=== PATIENT | female | born 1970 | race Caucasian/White ===

== ENCOUNTER → 2017-05-25 | Outpatient (CLI) | payer OTHER ==
--- NOTE | 2017-05-25 20:09 | Diagnostic Imaging Report ---
PROCEDURE: US Thyroid. TECHNIQUE: Multiple real-time grayscale images were obtained of the thyroid in various projections. INDICATION: Thyroid nodules. FINDINGS: The right thyroid lobe is 6.7 x 2.4 x 2.7 cm. The left lobe is 6.4 x 2.1 x 1.9 cm. There are multiple nodules seen up to 1.2 cm in the right thyroid lobe and up to 1.1 cm in the left thyroid lobe. There is a colloid cyst in the upper aspect of the left thyroid lobe measuring 0.5 cm as well. IMPRESSION: Nonspecific thyroid nodules up to 1.2 cm in size, and enlargement of the thyroid gland suggestive of multinodular goiter. Dictated by: Dictated on workstation # [id number]
== END ==
LOC: RAD 13:19
PROVIDERS: ATTEND Family Medicine
DX: E04.2 Nontoxic multinodular goiter (principal)
CPT/HCPCS: 76536

== ENCOUNTER → 2017-05-25 | Outpatient (CLI) | payer OTHER | LOC: RAD 13:25 → EDUNIT# 13:45 | PROVIDERS: ATTEND Nurse Practitioner Family | DX: Z12.31 Encounter for screening mammogram for malignant neoplasm of breast (principal) | CPT/HCPCS: 77067 ==

== ENCOUNTER → 2020-02-21 | Outpatient (CLI) | payer BC, OTHER ==
--- NOTE | 2020-02-21 14:43 | Diagnostic Imaging Report ---
INDICATION: Constipation. Time of exam 2:16 PM Surgical clips are noted in the gallbladder fossa. Bowel gas pattern is nonobstructed. There is moderate stool throughout the colon. No pathologic calcifications are seen. IMPRESSION: Moderate stool. The study is otherwise unremarkable. Dictated by: Dictated on workstation # [id number]
== END ==
LOC: RAD 13:41
PROVIDERS: ATTEND Nurse Practitioner Family
DX: K59.00 Constipation, unspecified (principal)
CPT/HCPCS: 74019

== ENCOUNTER 2020-03-20 08:37 | Outpatient (RCR) | payer BC ==
[~2020-03-20] VITALS: Ht 167 cm; Wt 75.0 kg
[~2020-03-20 08:37] MED LIST: BUPR300T43 PO; DULA1.5P2 SQ; PANT40TA2 PO; SITA1TAB2 PO; TRIA10.8 NS
== END 2020-03-20 15:29 | disposition home or self-care (01) ==
LOC: PREOP 08:37
PROVIDERS: ATTEND Surgery
DX: Z01.812 Encounter for preprocedural laboratory examination (principal); K45.8 Other specified abdominal hernia without obstruction or gangrene; Z20.828 Contact with and (suspected) exposure to other viral communicable diseases
CPT/HCPCS: 87635

== ENCOUNTER 2020-03-25 09:09 | Day surgery (SDC) | payer BC ==
[~2020-03-25] VITALS: Ht 167.7 cm; Wt 75.0 kg
[2020-03-25] MEDS ORDERED: LACTATED RINGERS 1,000 ML IV ONE (09:13)
[2020-03-25] MEDS ORDERED: HURRICAINE EXT TUBE (BENZOCAINE) XX PRN (09:15)
[2020-03-25] MEDS ORDERED: LACTATED RINGERS 1,000 ML IV STA (09:15)
[2020-03-25] MEDS ORDERED: MIDAZOLAM 2 MG/2 ML (VERSED) VIAL ONE (09:30)
[2020-03-25] MEDS ORDERED: proPOfol 200 MG/20 ML (DIPRIVAN) VIAL IV ONE (09:30)
--- NOTE | 2020-03-25 09:31 | Progress Note-Pre Operative ---
Pre-Operative Progress Note H&P Reviewed The H&P was reviewed, patient examined and no changes noted. Time Seen by Provider: : Date H&P Reviewed: Mar 25, 2020 Time H&P Reviewed: : Pre-Operative Diagnosis: Dysphagia, Gastritis, Change in bowel habits HAYDEN MACK DO Mar 25, 2020 09:31
[2020-03-25 09:45] VITALS: BP 141/72
--- NOTE | 2020-03-25 10:05 | NUR ---
COLONOSCOPY PROCEDURE ABORTED DUE TO POOR PREP, PER DOCTOR PT WILL BE SCHEDULED TO COMPLETE.
--- NOTE | 2020-03-25 10:13 | Progress Note-Post Operative ---
Post-Operative Progess Note Surgeon (s)/Switchboard Manager (s) Surgeon HAYDEN MACK DO Switchboard Manager: none Pre-Operative Diagnosis Dysphagia, Gastritis, Change in bowel habits Post-Operative Diagnosis Gastritis Hiatal Hernia Poor prep ?? polyp Procedure & Operative Findings Date of Procedure 03/25/20 Procedure Performed/Findings EGD with bx colon Anesthesia Type IV sedation by anesthesia Estimated Blood Loss Estimated blood loss (mL): scant Specimens/Packing Specimens Removed Antral bx body of stomach bx GE jxn bx HAYDEN MACK DO Mar 25, 2020 10:13
--- NOTE | 2020-03-25 10:14 | Endoscopy Discharge Instruct ---
Endo Procedure/Findings Findings 1.: Gastritis 2.: Hiatal Hernia 3.: Other Findings (Poor prep....??polyp) Discharge Instructions - Activity: You might feel a little sleepy until tomorrow. This is due to the medicine you received to relax you. Until tomorrow, you should: NOT drive a car, operate machinery or power tools. NOT drink any alcoholic beverages. NOT make any important decisions or sign importortant papers. Do not return to work until tomorrow, unless otherwise instructed. Resume previous activities tomorrow. Diet: Start by taking liquids. If you tolerate liquids, advance to solid food. make an appointment for one week 1.: Colonoscopy in 1 year, EGD in 3 years Notify Physician - If you experience excessive bleeding, unusual abdominal pain, fever, or chest pain, contact your doctor immediately. HAYDEN MACK DO Mar 25, 2020 10:14
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
[2020-03-25 10:20] VITALS: BP 128/67
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
--- OUTSIDE RECORDS SUMMARY | 2020-03-25 10:25 | XMS REPORT | CCD ---
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 Dates Constitutional No fatigue 04/27/2019 Constitutional No fever 04/27/2019 Constitutional No chills 04/27/2019 Gastrointestinal No abdominal pain 04/27/2019 Gastrointestinal constipation 04/27/2019 Gastrointestinal No diarrhea 04/27/2019 Endocrine diabetes mellitus type 2 04/27/2019 Genitourinary/Nephrology pelvic pain 04/27/2019 Dermatologic No rash Dermatologic No sores Respiratory No cough Genitourinary/Nephrology No dysuria 04/27/2019 Genitourinary/Nephrology No flank pain 04/27/2019 Genitourinary/Nephrology No hematuria 04/27/2019 Genitourinary/Nephrology No urinary urgenc y 04/27/2019 Genitourinary/Nephrology No urinary frequency 04/27/2019 Genitourinary/Nephrology No urinary incontinence 04/27/2019 Genitourinary/Nephrology No urinary retention/hesitancy 04/27/2019 Cardiovascular No arrhythmia 04/27/2019 Cardiovascular No chest pain/pressure 04/27/2019 Cardiovascular No edema 04/27/2019 Cardiovascular No exercise intolerance 04/27/2019 Cardiovascular No orthopnea 04/27/2019 Cardiovascular No palpitations 04/27/2019 Constitutional No fussiness 12/15/2018 Constitutional No night sweats 12/15/2018 Constitutional No anorexia 12/15/2018 Constitutional No chills 12/15/2018 Constitutional No diaphoresis 12/15/2018 Constitutional No recent illness 12/15/2018 Constitutional No fatigue 12/15/2018 Constitutional No fever 12/15/2018 Constitutional No insomnia 12/15/2018 Constitutional No malaise 12/15/2018 Constitutional No weight gain/obesity 12/15/2018 Constitutional No weight loss 12/15/2018 Eyes No eye pain 019 Eyes No visual disturbance 12/15/2018 Eyes No vision change Ears/Nose/Throat/Neck No dizziness 12/15/2018 Ears/Nose/Throat/Neck No headache 12/15/2018 Cardiovascular No chest pain/pressure 12/15/2018 Cardiovascular No cardiac murmur 12/15/2018 Cardiovascular No dyspnea 12/15/2018 Cardiovascular No fatigue 12/15/2018 Cardiovascular No palpitations 12/15/2018 Respiratory No cough 07/2019 Respiratory No dyspnea 0 12/15/2018 Gastrointestinal abdominal pain 12/15/2018 Gastrointestinal constipation 12/15/2018 Gastrointestinal No diarrhea 12/15/2018 Gastrointestinal dyspepsia 12/15/2018 Gastrointestinal No dysphagia 12/15/2018 Gastrointestinal gas and bloating 12/15/2018 Gastrointestinal gastroesophageal reflux 12/15/2018 Gastrointestinal No hematemesis 12/15/2018 Gastrointestinal No hematochezia 12/15/2018 Gastrointestinal increased abdominal girth 12/15/2018 Gastrointestinal No jaundice 12/15/2018 Gastrointestinal No melena 12/15/2018 Gastrointestinal nausea 12/15/2018 Gastrointestinal No odynophagia 12/15/2018 Gastrointestinal No proctalgia fugax 12/15/2018 Gastrointestinal No pruritus ani 12/15/2018 Gastrointestinal No vomiting 12/15/2018 Gastrointestinal No hemorrhoids 12/15/2018 Genitourinary/Nephrology No dysuria 12/15/2018 Musculoskeletal No arthralgia(s) 12/15/2018 Musculoskeletal No low back pain 12/15/2018 Dermatologic No rash 07/2019 Dermatologic No sores Neurologic No alteration of consciousness 12/15/2018 Neurologic No headache 0 12/15/2018 Psychiatric anxiety 12/05 Psychiatric No depression 12/15/2018 Endocrine diabetes mellitus type 2 12/15/2018 Hematologic/Lymphatic No abnormal ec chymoses 12/15/2018 Hematologic/Lymphatic No abnormal bl eeding and bruising 12/15/2018 Endocrine diabetes mellitus type 2 08/22/2018 Psychiatric anxiety 08/06 Psychiatric stress 08/22 Gastrointestinal nausea 08/22/2018 Gastrointestinal No vomiting 08/22/2018 Gastrointestinal constipation 08/22/2018 Gastrointestinal gas and bloating 08/22/2018 Constitutional insomnia 05/26/2018 Cardiovascular No arrhythmia 05/26/2018 Cardiovascular No chest pain/pressure 05/26/2018 Cardiovascular No edema 05/26/2018 Cardiovascular No exercise intolerance 05/26/2018 Cardiovascular No orthopnea 05/26/2018 Cardiovascular No palpitations 05/26/2018 Endocrine diabetes mellitus type 2 05/26/2018 Respiratory No asthma Respiratory No cough Respiratory No dyspnea 0 05/26/2018 Respiratory No pleuritic pain 05/26/2018 Respiratory No productive sputum 05/26/2018 Respiratory No wheezing 05/26/2018 Constitutional No night sweats 01/18/2018 Constitutional No fatigue 01/18/2018 Constitutional No fever 01/18/2018 Constitutional insomnia 01/18/2018 Constitutional No weight loss 01/18/2018 Ears/Nose/Throat/Neck No hearing loss 01/18/2018 Ears/Nose/Throat/Neck No nasal discharge 01/18/2018 Ears/Nose/Throat/Neck No sinus congestion 01/18/2018 Ears/Nose/Throat/Neck No sore throat 01/18/2018 Cardiovascular No arrhythmia 01/18/2018 Cardiovascular No chest pain/pressure 01/18/2018 Cardiovascular No edema 01/18/2018 Cardiovascular No exercise intolerance 01/18/2018 Cardiovascular No orthopnea 01/18/2018 Cardiovascular No palpitations 01/18/2018 Respiratory No asthma Respiratory No cough Respiratory No dyspnea 0 01/18/2018 Respiratory No pleuritic pain 01/18/2018 Respiratory No productive sputum 01/18/2018 Respiratory No wheezing 01/18/2018 Gastrointestinal No hemorrhoids 01/18/2018 Gastrointestinal No hepatitis 01/18/2018 Gastrointestinal No abdominal pain 01/18/2018 Gastrointestinal No constipation 01/18/2018 Gastrointestinal No diarrhea 01/18/2018 Gastrointestinal No gastroesophageal reflu x 01/18/2018 Gastrointestinal No melena 01/18/2018 Gastrointestinal No nausea 01/18/2018 Gastrointestinal No vomiting 01/18/2018 Genitourinary/Nephrology No dysuria 01/18/2018 Genitourinary/Nephrology No nocturia 01/18/2018 Genitourinary/Nephrology No urinary incontinence 01/18/2018 Musculoskeletal No muscle weakness 01/18/2018 Musculoskeletal No myalgias 01/18/2018 Musculoskeletal No stiffness 01/18/2018 Musculoskeletal No swelling 01/18/2018 Dermatologic No rash Dermatologic No scar Neurologic No dizziness 01/18/2018 Neurologic No headache 0 01/18/2018 Neurologic No neck pain 01/18/2018 Neurologic No syncope Psychiatric No anxiety 0 01/18/2018 Psychiatric No depression 01/18/2018 Endocrine No goiter 01/04 Endocrine No hyperglycemia 01/18/2018 Endocrine No hypoglycemia 01/18/2018 Endocrine diabetes mellitus type 2 01/18/2018 Endocrine hyperlipidemia 01/18/2018 Musculoskeletal neck pain 08/12/2017 Neurologic paresthesia 1 10/13/2016 Neurologic neck pain 03/2017 Endocrine diabetes mellitus type 2 08/12/2017 Cardiovascular No arrhythmia 05/25/2017 Cardiovascular No chest pain/pressure 05/25/2017 Cardiovascular No edema 05/25/2017 Cardiovascular No exercise intolerance 05/25/2017 Cardiovascular No orthopnea 05/25/2017 Cardiovascular No palpitations 05/25/2017 Cardiovascular hypertension 05/25/2017 Constitutional fatigue 0 04/30/2017 Constitutional insomnia 04/30/2017 Constitutional weight gain/obesity 04/30/2017 Ears/Nose/Throat/Neck headache 04/30/2017 Gastrointestinal constipation 04/30/2017 Gastrointestinal No diarrhea 04/30/2017 Cardiovascular edema Cardiovascular No hypertension 04/30/2017 Cardiovascular palpitations 04/30/2017 Cardiovascular No chest pain/pressure 04/30/2017 Psychiatric anxiety 04/07 Psychiatric depression 0 04/30/2017 Psychiatric No suicidality 04/30/2017 Endocrine hypothyroid Endocrine goiter 017 Genitourinary/Nephrology No Pap smea r abnormality 04/30/2017 Physical Exam Exam Name System Name It em Name Status Result Effective Dates Notes Full Exam - General Constitutional general appearance Overall: well nourished 04/27/2019 None Full Exam - General Constitutional general appearance Overall: in no acute distress 04/27/2019 None Full Exam - General Cardiovascular auscultation of heart Overall: regular rate 04/27/2019 None Full Exam - General Cardiovascular auscultation of heart Overall: no murmurs 04/27/2019 None Full Exam - General Respiratory respiratory effort/rhythm Overall: no retractions 04/27/2019 None Full Exam - General Respiratory respiratory effort/rhythm Overall: normal rate 04/27/2019 None Full Exam - General Respiratory auscultation Overall: breath sounds clear bilater ally 04/27/2019 None Full Exam - General Cardiovascular extremities Overall: no clubbing 04/27/2019 None Full Exam - General Cardiovascular extremities Overall: No edema 04/27/2019 None Full Exam - General Cardiovascular extremities Overall: No cyanosis 04/27/2019 None Full Exam - General Musculoskeletal gait and station Overall: normal gait 04/27/2019 None Full Exam - General Musculoskeletal gait and station Overall: normal station 04/27/2019 None Full Exam - General Neurologic mental status Overall: alert 9 None Full Exam - General Neurologic mental status Overall: oriented 04/27/2019 None Full Exam - General Psychiatric mood and affect Overall: normal mood and affect 04/27/2019 None Full Exam - General Constitutional general appearance Overall: well nourished 12/15/2018 None Full Exam - General Constitutional general appearance Overall: well developed 12/15/2018 None Full Exam - General Constitutional general appearance Overall: in no acute distress 12/15/2018 None Full Exam - General Eyes conjunctiva/eyelids Overall: conjunctiva clear 12/15/2018 None Full Exam - General Eyes conjunctiva/eyelids Overall: cornea clear 12/15/2018 None Full Exam - General Eyes conjunctiva/eyelids Overall: eyelids normal 12/15/2018 None Full Exam - General Eyes pupils and irises Overall: pupils equal, round, reacti ve to light and accomodation 12/15/2018 None Full Exam - General Ears/Nose/Throat otoscopic exam Overall: external auditory canals clear 12/15/2018 None Full Exam - General Ears/Nose/Throat otoscopic exam Overall: tympanic membranes clear 12/15/2018 None Full Exam - General Ears/Nose/Throat oral cavity/pharynx/larynx Overall: oral mucosa clear 12/15/2018 None Full Exam - General Neck inspection of neck Overall: normal size 12/15/2018 None Full Exam - General Neck inspection of neck Overall: normal appearance 12/15/2018 None Full Exam - General Respiratory auscultation Overall: breath sounds clear bilater ally 12/15/2018 None Full Exam - General Respiratory respiratory effort/rhythm Overall: no retractions 12/15/2018 None Full Exam - General Respiratory respiratory effort/rhythm Overall: normal rate 12/15/2018 None Full Exam - General Cardiovascular auscultation of heart Overall: regular rate 12/15/2018 None Full Exam - General Cardiovascular auscultation of heart Overall: normal heart sounds 12/15/2018 None Full Exam - General Cardiovascular extremities Overall: No edema 12/15/2018 None Full Exam - General Abdomen abdominal exam Overall: soft 12/15/2018 None Full Exam - General Abdomen abdominal exam Overall: no masses 12/15/2018 None Full Exam - General Abdomen abdominal exam Bowel sounds: hypoactive 12/15/2018 None Full Exam - General Abdomen abdominal exam Contour: rounded 019 None Full Exam - General Abdomen abdominal exam Skin: a normal exam 12/15/2018 None Full Exam - General Abdomen abdominal exam Left upper quadrant: dull pain 12/15/2018 None Full Exam - General Abdomen abdominal exam Left lower quadrant: dull pain 12/15/2018 None Full Exam - General Abdomen abdominal exam Right upper quadrant: dull pain 12/15/2018 None Full Exam - General Abdomen abdominal exam Right lower quadrant: dull pain 12/15/2018 None Full Exam - General Abdomen abdominal exam Epigastric: dull pain 12/15/2018 None Full Exam - General Lymphatic neck nodes Overall: anterior cervical chain helen ign 12/15/2018 None Full Exam - General Lymphatic neck nodes Overall: posterior cervical chain be nign 12/15/2018 None Full Exam - General Musculoskeletal head and neck Overall: head atraumatic 12/15/2018 None Full Exam - General Musculoskeletal head and neck Overall: cervical spine benign 12/15/2018 None Full Exam - General Musculoskeletal gait and station Overall: normal gait 12/15/2018 None Full Exam - General Musculoskeletal gait and station Overall: normal station 12/15/2018 None Full Exam - General Integument inspection of skin Overall: no rash, lesions 12/15/2018 None Full Exam - General Neurologic mental status Overall: alert 9 None Full Exam - General Neurologic mental status Overall: oriented 12/15/2018 None Full Exam - General Neurologic motor Overall: normal bulk, tone 12/15/2018 None Full Exam - General Psychiatric orientation/consciousness Overall: oriented to person, place and time 12/15/2018 None Full Exam - General Psychiatric mood and affect Overall: normal mood and affect 12/15/2018 None Full Exam - General Psychiatric judgment/insight Overall: judgment and insight intact 12/15/2018 None Full Exam - General Constitutional general appearance Overall: well nourished 08/22/2018 None Full Exam - General Constitutional general appearance Overall: well developed 08/22/2018 None Full Exam - General Constitutional general appearance Overall: in no acute distress 08/22/2018 None Full Exam - General Neurologic mental status Overall: alert 8 None Full Exam - General Neurologic mental status Overall: oriented 08/22/2018 None Full Exam - General Psychiatric mood and affect Overall: normal mood and affect 08/22/2018 None Full Exam - General Abdomen abdominal exam Overall: no masses 08/22/2018 None Full Exam - General Abdomen abdominal exam Overall: normal bowel sounds 08/22/2018 None Full Exam - General Abdomen abdominal exam Overall: soft 08/22/2018 None Full Exam - General Abdomen abdominal exam Epigastric: tender to palpation 08/22/2018 None Full Exam - General Respiratory auscultation Overall: breath sounds clear bilater ally 08/22/2018 None Full Exam - General Cardiovascular auscultation of heart Overall: regular rate 08/22/2018 None Full Exam - General Cardiovascular auscultation of heart Overall: normal heart sounds 08/22/2018 None Full Exam - General Cardiovascular auscultation of heart S4 (atrial gallop): present 08/22/2018 None Full Exam - General Constitutional general appearance Overall: well nourished 05/26/2018 None Full Exam - General Constitutional general appearance Overall: well developed 05/26/2018 None Full Exam - General Constitutional general appearance Overall: in no acute distress 05/26/2018 None Full Exam - General Neurologic mental status Overall: alert 8 None Full Exam - General Neurologic mental status Overall: oriented 05/26/2018 None Full Exam - General Psychiatric mood and affect Overall: normal mood and affect 05/26/2018 None Full Exam - General Respiratory auscultation Overall: breath sounds clear bilater ally 05/26/2018 None Full Exam - General Cardiovascular auscultation of heart Overall: regular rate 05/26/2018 None Full Exam - General Cardiovascular auscultation of heart Overall: normal heart sounds 05/26/2018 None Full Exam - General Cardiovascular extremities Overall: no clubbing 05/26/2018 None Full Exam - General Cardiovascular extremities Overall: No edema 05/26/2018 None Full Exam - General Cardiovascular extremities Overall: No cyanosis 05/26/2018 None Full Exam - General Constitutional general appearance Overall: well nourished 01/18/2018 None Full Exam - General Constitutional general appearance Overall: well developed 01/18/2018 None Full Exam - General Constitutional general appearance Overall: in no acute distress 01/18/2018 None Full Exam - General Neurologic mental status Overall: alert 8 None Full Exam - General Neurologic mental status Overall: oriented 01/18/2018 None Full Exam - General Psychiatric mood and affect Mood: tearful 01/18/2018 None Full Exam - General Respiratory auscultation Overall: breath sounds clear bilater ally 01/18/2018 None Full Exam - General Cardiovascular auscultation of heart Overall: regular rate 01/18/2018 None Full Exam - General Cardiovascular auscultation of heart Overall: normal heart sounds 01/18/2018 None Full Exam - General Cardiovascular auscultation of heart Overall: no murmurs 01/18/2018 None Full Exam - General Cardiovascular extremities Overall: no clubbing 01/18/2018 None Full Exam - General Cardiovascular extremities Overall: No edema 01/18/2018 None Full Exam - General Cardiovascular extremities Overall: No cyanosis 01/18/2018 None Full Exam - General Neck inspection of neck Overall: normal size 01/18/2018 None Full Exam - General Neck inspection of neck Overall: no masses 01/18/2018 None Full Exam - General Ears/Nose/Throat otoscopic exam Overall: external auditory canals clear 01/18/2018 None Full Exam - General Ears/Nose/Throat otoscopic exam Overall: tympanic membranes clear 01/18/2018 None Full Exam - General Ears/Nose/Throat internal nose Overall: bilateral nasal cavities clear 01/18/2018 None Full Exam - General Ears/Nose/Throat oral cavity/pharynx/larynx Overall: oral mucosa clear 01/18/2018 None Full Exam - General Abdomen abdominal exam Overall: no masses 01/18/2018 None Full Exam - General Abdomen abdominal exam Overall: normal bowel sounds 01/18/2018 None Full Exam - General Abdomen abdominal exam Overall: soft 01/18/2018 None Full Exam - General Abdomen abdominal exam Epigastric: tender to palpation 01/18/2018 None Full Exam - General Musculoskeletal gait and station Overall: normal gait 01/18/2018 None Full Exam - General Musculoskeletal gait and station Overall: normal station 01/18/2018 None Full Exam - General Constitutional general appearance Overall: well nourished 08/12/2017 None Full Exam - General Constitutional general appearance Overall: well developed 08/12/2017 None Full Exam - General Constitutional general appearance Overall: in no acute distress 08/12/2017 None Full Exam - General Neurologic mental status Overall: alert 7 None Full Exam - General Neurologic mental status Overall: oriented 08/12/2017 None Full Exam - General Psychiatric mood and affect Overall: normal mood and affect 08/12/2017 None Full Exam - General Respiratory auscultation Overall: breath sounds clear bilater ally 08/12/2017 None Full Exam - General Cardiovascular auscultation of heart Overall: regular rate 08/12/2017 None Full Exam - General Cardiovascular auscultation of heart Overall: normal heart sounds 08/12/2017 None Full Exam - General Musculoskeletal spine, ribs and pelvis Spine: tender @ cervical spine 08/12/2017 None Full Exam - General Chest/Breast breast/chest inspection Breast symmetry: asymmetric 08/12/2017 left breast implant sitting lower in chest than right Full Exam - General Constitutional general appearance Overall: well nourished 05/25/2017 None Full Exam - General Constitutional general appearance Overall: well developed 05/25/2017 None Full Exam - General Constitutional general appearance Overall: in no acute distress 05/25/2017 None Full Exam - General Neurologic mental status Overall: alert 7 None Full Exam - General Neurologic mental status Overall: oriented 05/25/2017 None Full Exam - General Psychiatric mood and affect Overall: normal mood and affect 05/25/2017 None Full Exam - General Respiratory auscultation Overall: breath sounds clear bilater ally 05/25/2017 None Full Exam - General Cardiovascular auscultation of heart Overall: regular rate 05/25/2017 None Full Exam - General Cardiovascular auscultation of heart Overall: normal heart sounds 05/25/2017 None Full Exam - General Cardiovascular auscultation of heart S3 (ventricular gallop): present 05/25/2017 None Full Exam - General Cardiovascular extremities Overall: no clubbing 05/25/2017 None Full Exam - General Cardiovascular extremities Overall: No edema 05/25/2017 None Full Exam - General Cardiovascular extremities Overall: No cyanosis 05/25/2017 None Full Exam - General Constitutional general appearance Overall: well nourished 04/30/2017 None Full Exam - General Constitutional general appearance Overall: well developed 04/30/2017 None Full Exam - General Constitutional general appearance Overall: in no acute distress 04/30/2017 None Full Exam - General Neck thyroid Overall: normal size None Full Exam - General Neck thyroid Overall: normal consistency 04/30/2017 None Full Exam - General Neck thyroid Overall: nontender 04/30 None Full Exam - General Neck thyroid Overall: no mass lesions 04/30/2017 None Full Exam - General Respiratory auscultation Overall: breath sounds clear bilater ally 04/30/2017 None Full Exam - General Cardiovascular auscultation of heart Overall: regular rate 04/30/2017 None Full Exam - General Cardiovascular auscultation of heart Overall: normal heart sounds 04/30/2017 None Full Exam - General Cardiovascular auscultation of heart Overall: no murmurs 04/30/2017 None Full Exam - General Cardiovascular extremities Overall: No edema 04/30/2017 None Full Exam - General Abdomen abdominal exam Overall: no tenderness 04/30/2017 None Full Exam - General Abdomen abdominal exam Overall: soft 04/30/2017 None Full Exam - General Abdomen abdominal exam Overall: no masses 04/30/2017 None Full Exam - General Abdomen abdominal exam Overall: normal bowel sounds 04/30/2017 None Full Exam - General Neurologic mental status Overall: alert 7 None Full Exam - General Neurologic mental status Overall: oriented 04/30/2017 None Full Exam - General Psychiatric orientation/consciousness Overall: oriented to person, place and time 04/30/2017 None Full Exam - General Psychiatric mood and affect Overall: normal mood and affect 04/30/2017 None Full Exam - General Musculoskeletal gait and station Overall: normal gait 04/30/2017 None Full Exam - General Musculoskeletal gait and station Overall: normal station 04/30/2017 None Procedures Procedure Codes Date ROUTINE VENIPUNCTURE CPT-4: 12206 04/27/2019 COMPREHEN METABOLIC PANEL CPT-4: 32928 04/27/2019 COMPLETE CBC W/AUTO DIFF WBC CPT-4: 24287 04/27/2019 LIPID PANEL CPT-4: 09388 04/27/2019 A1C HPLC CPT-4: 71856 04/27/2019 ROUTINE VENIPUNCTURE CPT-4: 88585 05/26/2018 COMPREHEN METABOLIC PANEL CPT-4: 75109 05/26/2018 COMPLETE CBC W/AUTO DIFF WBC CPT-4: 05337 05/26/2018 LIPID PANEL CPT-4: 99226 05/26/2018 A1C HPLC CPT-4: 24174 05/26/2018 ROUTINE VENIPUNCTURE CPT-4: 37036 01/18/2018 COMPREHEN METABOLIC PANEL CPT-4: 99522 01/18/2018 A1C HPLC CPT-4: 49989 01/18/2018 ROUTINE VENIPUNCTURE CPT-4: 35180 04/30/2017 ASSAY OF FREE THYROXINE CPT-4: 54473 04/30/2017 ASSAY THYROID STIM H ORMONE CPT-4: 73742 04/30/2017 COMPREHEN METABOLIC PANEL CPT-4: 40908 04/30/2017 COMPLETE CBC W/AUTO DIFF WBC CPT-4: 83594 04/30/2017 LIPID PANEL CPT-4: 82181 04/30/2017 A1C HPLC CPT-4: 55068 04/30/2017 Vital Signs Date Vital 04/27/2019 Blood Pressure 1: 134/78 Code: 8480-6 Heart Rate 1: 83 bpm SpO2: 99% Temperature: 36.8 (C ) / 98.3 (F) Weight: 157 lbs 12/15/2018 Blood Pressure 1: 122/80 Code: 8480-6 Heart Rate 1: 97 bpm Respiratory Rate: 18 bpm SpO2: 98% Temperature: 36.7 (C ) / 98.0 (F) Weight: 158 lbs 08/22/2018 Blood Pressure 1: 126/80 Code: 8480-6 BMI: 26.1 Code: 71222-0 Heart Rate 1: 96 bpm Height: 5'6" Respiratory Rate: 20 bpm SpO2: 97% Temperature: 36.9 (C ) / 98.4 (F) Weight: 159 lbs 05/26/2018 Blood Pressure 1: 106/70 Code: 8480-6 Heart Rate 1: 84 bpm Respiratory Rate: 20 bpm Temperature: 36.8 (C) / 98.2 (F) Weight: 153 lbs 01/18/2018 Blood Pressure 1: 106/72 Code: 8480-6 BMI: 25.2 Code: 41615-1 Heart Rate 1: 92 bpm Height: 5'6" Respiratory Rate: 20 bpm SpO2: 98% Temperature: 36.9 (C ) / 98.4 (F) Weight: 154 lbs 08/12/2017 Blood Pressure 1: 126/74 Code: 8480-6 Heart Rate 1: 96 bpm Respiratory Rate: 20 bpm Temperature: 37.1 (C) / 98.7 (F) Weight: 154 lbs 05/25/2017 Blood Pressure 1: 116/64 Code: 8480-6 BMI: 25.4 Code: 07051-8 Heart Rate 1: 96 bpm Height: 5'6" Respiratory Rate: 20 bpm SpO2: 98% Temperature: 36.7 (C ) / 98.1 (F) Weight: 155 lbs 04/30/2017 Blood Pressure 1: 132/80 Code: 8480-6 BMI: 25.7 Code: 86050-2 Heart Rate 1: 80 bpm Height: 5'6" Respiratory Rate: 20 bpm SpO2: 98% Temperature: 36.7 (C ) / 98.0 (F) Weight: 157 lbs Functional Status No Functional Status data History of Present Illness Symptom Name Status Resu lt Effective Date Notes Glucose monitoring daily 04/27/2019 None Quality acute 04/27/2019 None Onset and Resolution o ngoing 04/27/2019 None Quality chronic 04/27/2019 None Quality stable 04/27/2019 None anxiety Quality chronic 08/22/2018 None anxiety Quality agitation 08/22/2018 None anxiety Quality stable. 08/22/2018 Monitoring for alprazolam nausea Quality intermitt ent 08/22/2018 None nausea Quality acute 08/22/2018 past 2 weeks nausea Onset and Resolution ongoing 08/22/2018 None diabetes mellitus Quality chronic 05/26/2018 None diabetes mellitus Glucose monitoring rarely checks 05/26/2018 None insomnia Quality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
--- OUTSIDE RECORDS SUMMARY | 2020-03-25 10:25 | XMS REPORT | CCD ---
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 WPtel: [address] [place] [address] FOLLOW UP 05/26/2018 Patient Education: Patient Medication Summary Completed 05/26/2018 Visit Diagnosis Plan: 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 Discussion: [facility] Check CMP, HbA1C Accuchecks daily Follow Up: 3 months ICD-9 : 250.90 ICD-10 : E11.8 01/18/2018 Visit Diagnosis Plan: Epigastric pain Discussion: Pepcid 20mg for 1 month ICD-9 : 789.06 ICD-10 : R10.13 01/18/2018 Appointment: Julia Bacon WPtel: [address] [place] [address] Annual Well Visit 01/18/2018 Patient Education: Patient Medication Summary Completed 01/18/2018 Patient Education: [facility] - [employer] - 18-64 - Dynamic Portal ID Completed 01/18/2018 Appointment: Julia Bacnotel: [address] [place] [address] US RESCHEDULED 08/24/2017 Visit Diagnosis Plan: Other spondylosis with radiculopathy, cervical region Discussion: Proceed with MRI of cervical spine Fwup pending above results ICD-9 : 721.0 ICD-10 : M47.22 08/12/2017 Visit Diagnosis Plan: Displacement of br east prosthesis and implant, initial encounter Discussion: Proceed with MRI of breasts ICD-9 : 996.54 ICD-10 : T85.42XA 08/12/2017 Appointment: Julia Bacon WPtel: [address] [place] [address] ACUTE ILLNESS 08/12/2017 Patient Education: Patient Medication Summary Completed 08/12/2017 Patient Education: Leydi/Maura XR - 18-64 - [employer] Completed 08/12/2017 Patient Education: [facility] - [employer] - 18-64 - Dynamic Portal ID Completed 08/12/2017 Care Plan: MRI NECK SPINE W/O DYE LOINC : 64738-2 Pending 08/12/2017 Care Plan: MRI BOTH BREASTS Pending 08/12/2017 [facility]ment: [facility] [phone] [id number] [facility] RESCHEDULED 07/20/2017 Visit Diagnosis Plan: 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 Discussion: Just restarted trulicity Acc uchecks daily Check HbA1C in 3mos and fwup Change Triam/HCTZ to Lisinopril Hct Follow Up: 3 months ICD-9 : 250.90 ICD-10 : E11.8 05/25/2017 Appointment: [facility]el[facility] [phone] [id number] FOLLOW UP 05/25/2017 Patient Education: Patient Medication Summary Completed 05/25/2017 Patient Education: [facility] - [employer] - Lisinopril - 18-64 - Dynamic Portal ID Completed 05/25/2017 Patient Education: Patient Medication Summary Completed 05/03/2017 Care Plan: US EXAM OF HEAD AND NECK Thyroid Ultrasound Pending 05/03/2017 Care Plan: MAMMOGRAM SCREENING LOINC : 09577-8 Pending 05/03/2017 Visit Plan: Labs CBC, CMP, Lipids, TSH, FT4, HgbA1C Mammo req given Drug test obtained Needs to restart Trulicity but needs pre-auth. Will await lab results first. Unsure of dose. Needs PET HOUSE SITTER exam (post hyst) exam and breast exam. (sister had breast cancer). Appt Dr. Bacon 1 month 04/30/2017 Visit Plan: Labs CBC, CMP, Lipids, TSH, FT4, HgbA1C Mammo req given Drug test obtained Needs to restart Trulicity but needs pre-auth. Will await lab results first. Unsure of dose. Needs PET HOUSE SITTER exam (post hyst) exam and breast exam. (sister had breast cancer). Appt Dr. Bacon 1 month 04/30/2017 Visit Plan: Labs CBC, CMP, Lipids, TSH, FT4, HgbA1C Mammo req given Drug test obtained Needs to restart Trulicity but needs pre-auth. Will await lab results first. Unsure of dose. Needs PET HOUSE SITTER exam (post hyst) exam and breast exam. (sister had breast cancer). Appt Dr. Bacon 1 month 04/30/2017 Visit Plan: Labs CBC, CMP, Lipids, TSH, FT4, HgbA1C Mammo req given Drug test obtained Needs to restart Trulicity but needs pre-auth. Will await lab results first. Unsure of dose. Needs PET HOUSE SITTER exam (post hyst) exam and breast exam. (sister had breast cancer). Appt Dr. Bacon 1 month 04/30/2017 Appointment: Srutih Kurtz [facility]Ptel[phone] [id number] NEW PATIENT 04/30/2017 Patient Education: Patient Medication Summary Completed 04/30/2017 Patient Education: [facility] - [employer] - 18-64 - Dynamic Portal ID Completed 04/30/2017 Patient Education: Leeanne XR - 18-64 - [employer] Completed 04/30/2017 Appointment: [facility] Bacon [facility]Ptel[facility] [phone] [id number] RESCHEDULED 04/22/2017 Instructions Comment . Labs CBC, CMP, Lip ids, TSH, FT4, HgbA1C Mammo req given Drug test obtained Needs to restart Trulicity but needs pre-auth. Will await lab results first. Unsure of dose. Needs PET HOUSE SITTER exam (post hyst) exam and breast exam. (sister had breast cancer). Appt Dr. Bacon 1 month . Labs CBC, CMP, Lip ids, TSH, FT4, HgbA1C Mammo req given Drug test obtained Needs to restart Trulicity but needs pre-auth. Will await lab results first. Unsure of dose. Needs PET HOUSE SITTER exam (post hyst) exam and breast exam. (sister had breast cancer). Appt Dr. Bacon 1 month . Labs CBC, CMP, Lip ids, TSH, FT4, HgbA1C Mammo req given Drug test obtained Needs to restart Trulicity but needs pre-auth. Will await lab results first. Unsure of dose. Needs PET HOUSE SITTER exam (post hyst) exam and breast exam. (sister had breast cancer). Appt Dr. Bacon 1 month . Labs CBC, CMP, Lip ids, TSH, FT4, HgbA1C Mammo req given Drug test obtained Needs to restart Trulicity but needs pre-auth. Will await lab results first. Unsure of dose. Needs PET HOUSE SITTER exam (post hyst) exam and breast exam. (sister had breast cancer). Appt Dr. Bacon 1 month
--- OUTSIDE RECORDS SUMMARY | 2020-03-25 10:26 | XMS REPORT | CCD ---
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 Displacement of br east prosthesis and implant, initial encounter Discussion: Proceed with MRI of breasts ICD-9 : 996.54 ICD-10 : T85.42XA 08/12/2017 Appointment: Julia Bacon WPtel: [address] [place] [address] ACUTE ILLNESS 08/12/2017 Patient Education: Patient Medication Summary Completed 08/12/2017 Patient Education: Leydi/Maura XR - 18-64 - eCopay Completed 08/12/2017 Patient Education: [facility] - Saving AutoInj - 18-64 - Dynamic Portal ID Completed 08/12/2017 Care Plan: MRI NECK SPINE W/O DYE LOINC : 47648-0 Pending 08/12/2017 Care Plan: MRI BOTH BREASTS Pending 08/12/2017 [facility]ment: [facility] [phone] [id number] [facility] 07/20/2017 Visit Diagnosis Plan: 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 Discussion: Just restarted trulicity Acc uchecks daily Check HbA1C in 3mos and fwup Change Triam/HCTZ to Lisinopril Hct Follow Up: 3 months ICD-9 : 250.90 ICD-10 : E11.8 05/25/2017 Appointment: [facility] Bacon [facility] [phone] [id number] [facility] FOLLOW UP 05/25/2017 Patient Education: Patient Medication Summary Completed 05/25/2017 Patient Education: [facility] - Saving AutoInj - Lisinopril - 18-64 - Dynamic Portal ID Completed 05/25/2017 Patient Education: Patient Medication Summary Completed 05/03/2017 Care Plan: US EXAM OF HEAD AND NECK Thyroid Ultrasound Pending 05/03/2017 Care Plan: MAMMOGRAM SCREENING LOINC : 30034-5 Pending 05/03/2017 Visit Plan: Labs CBC, CMP, Lipids, TSH, FT4, HgbA1C Mammo req given Drug test obtained Needs to restart Trulicity but needs pre-auth. Will await lab results first. Unsure of dose. Needs TRAUMA DOCTOR exam (post hyst) exam and breast exam. (sister had breast cancer). Appt Dr. Bacon 1 month 04/30/2017 Visit Plan: Labs CBC, CMP, Lipids, TSH, FT4, HgbA1C Mammo req given Drug test obtained Needs to restart Trulicity but needs pre-auth. Will await lab results first. Unsure of dose. Needs TRAUMA DOCTOR exam (post hyst) exam and breast exam. (sister had breast cancer). Appt Dr. Bacon 1 month 04/30/2017 Visit Plan: Labs CBC, CMP, Lipids, TSH, FT4, HgbA1C Mammo req given Drug test obtained Needs to restart Trulicity but needs pre-auth. Will await lab results first. Unsure of dose. Needs TRAUMA DOCTOR exam (post hyst) exam and breast exam. (sister had breast cancer). Appt Dr. Bacon 1 month 04/30/2017 Visit Plan: Labs CBC, CMP, Lipids, TSH, FT4, HgbA1C Mammo req given Drug test obtained Needs to restart Trulicity but needs pre-auth. Will await lab results first. Unsure of dose. Needs TRAUMA DOCTOR exam (post hyst) exam and breast exam. (sister had breast cancer). Appt Dr. Bacon 1 month 04/30/2017 [facility]ment: Sruth[facility] Kurt[facility] [phone] [id number] [facility] 04/30/2017 Patient Education: Patient Medication Summary Completed 04/30/2017 Patient Education: [facility] - Saving AutoInj - 18-64 - Dynamic Portal ID Completed 04/30/2017 Patient Education: Leydi/Stephenieuo XR - 18-64 - eCopay Completed 04/30/2017 Appointment: Julia Bacon [facility]el[facility] [phone] [id number] [facility] 04/22/2017 Instructions Comment . Labs CBC, CMP, Lip ids, TSH, FT4, HgbA1C Mammo req given Drug test obtained Needs to restart Trulicity but needs pre-auth. Will await lab results first. Unsure of dose. Needs TRAUMA DOCTOR exam (post hyst) exam and breast exam. (sister had breast cancer). Appt Dr. Bacon 1 month . Labs CBC, CMP, Lip ids, TSH, FT4, HgbA1C Mammo req given Drug test obtained Needs to restart Trulicity but needs pre-auth. Will await lab results first. Unsure of dose. Needs TRAUMA DOCTOR exam (post hyst) exam and breast exam. (sister had breast cancer). Appt Dr. Bacon 1 month . Labs CBC, CMP, Lip ids, TSH, FT4, HgbA1C Mammo req given Drug test obtained Needs to restart Trulicity but needs pre-auth. Will await lab results first. Unsure of dose. Needs TRAUMA DOCTOR exam (post hyst) exam and breast exam. (sister had breast cancer). Appt Dr. Bacon 1 month . Labs CBC, CMP, Lip ids, TSH, FT4, HgbA1C Mammo req given Drug test obtained Needs to restart Trulicity but needs pre-auth. Will await lab results first. Unsure of dose. Needs TRAUMA DOCTOR exam (post hyst) exam and breast exam. (sister had breast cancer). Appt Dr. Bacon 1 month
--- OUTSIDE RECORDS SUMMARY | 2020-03-25 10:27 | XMS REPORT | CCD ---
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 implant, initial encounter Discussion: Proceed with MRI of breasts ICD-9 : 996.54 ICD-10 : T85.42XA 08/12/2017 Appointment: Julia Bacon WPtel: [address] [place] [address] ACUTE ILLNESS 08/12/2017 Patient Education: Patient Medication Summary Completed 08/12/2017 Patient Education: Leydi/Maura XR - 18-64 - eCopay Completed 08/12/2017 Patient Education: [facility] Julio Bautista AutoInj - 18-64 - Dynamic Portal ID Completed 08/12/2017 Care Plan: MRI NECK SPINE W/O DYE LOINC : 44328-8 Pending 08/12/2017 Care Plan: MRI BOTH BREASTS Pending 08/12/2017 Appointment: Julia Bacon WPtel: [address] [place], [place] [phone] US RESCHEDULED 07/20/2017 Visit Diagnosis Plan: 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 Discussion: Just restarted trulicity Acc uchecks daily Check HbA1C in 3mos and fwup Change Triam/HCTZ to Lisinopril Hct Follow Up: 3 months ICD-9 : 250.90 ICD-10 : E11.8 05/25/2017 Appointment: Julia Bacon WPtel: [address] [place], [place] [id number] US FOLLOW UP 05/25/2017 Patient Education: Patient Medication Summary Completed 05/25/2017 Patient Education: [facility] - Saving AutoInj - Lisinopril - 18-64 - Dynamic Portal ID Completed 05/25/2017 Patient Education: Patient Medication Summary Completed 05/03/2017 Care Plan: US EXAM OF HEAD AND NECK Thyroid Ultrasound Pending 05/03/2017 Care Plan: MAMMOGRAM SCREENING LOINC : 89713-2 Pending 05/03/2017 Visit Plan: Labs CBC, CMP, Lipids, TSH, FT4, HgbA1C Mammo req given Drug test obtained Needs to restart Trulicity but needs pre-auth. Will await lab results first. Unsure of dose. Needs PROJECT GEOPHYSICIST exam (post hyst) exam and breast exam. (sister had breast cancer). Appt Dr. Bacon 1 month 04/30/2017 Visit Plan: Labs CBC, CMP, Lipids, TSH, FT4, HgbA1C Mammo req given Drug test obtained Needs to restart Trulicity but needs pre-auth. Will await lab results first. Unsure of dose. Needs PROJECT GEOPHYSICIST exam (post hyst) exam and breast exam. (sister had breast cancer). Appt Dr. Bacon 1 month 04/30/2017 Visit Plan: Labs CBC, CMP, Lipids, TSH, FT4, HgbA1C Mammo req given Drug test obtained Needs to restart Trulicity but needs pre-auth. Will await lab results first. Unsure of dose. Needs PROJECT GEOPHYSICIST exam (post hyst) exam and breast exam. (sister had breast cancer). Appt Dr. Bacon 1 month 04/30/2017 Visit Plan: Labs CBC, CMP, Lipids, TSH, FT4, HgbA1C Mammo req given Drug test obtained Needs to restart Trulicity but needs pre-auth. Will await lab results first. Unsure of dose. Needs PROJECT GEOPHYSICIST exam (post hyst) exam and breast exam. (sister had breast cancer). Appt Dr. Bacon 1 month 04/30/2017 [facility]ment: Sr[facility] [phone] [id number] [facility] 04/30/2017 Patient Education: Patient Medication Summary Completed 04/30/2017 Patient Education: [facility] - Saving AutoInj - 18-64 - Dynamic Portal ID Completed 04/30/2017 Patient Education: Lamontepieter/Stephenieuo XR - 18-64 - eCopay Completed 04/30/2017 Appointment: Julia Bacon WPtel: [phone] [id number] RESCHEDULED 04/22/2017 Instructions Comment . Labs CBC, CMP, Lip ids, TSH, FT4, HgbA1C Mammo req given Drug test obtained Needs to restart Trulicity but needs pre-auth. Will await lab results first. Unsure of dose. Needs PROJECT GEOPHYSICIST exam (post hyst) exam and breast exam. (sister had breast cancer). Appt Dr. Bacon 1 month . Labs CBC, CMP, Lip ids, TSH, FT4, HgbA1C Mammo req given Drug test obtained Needs to restart Trulicity but needs pre-auth. Will await lab results first. Unsure of dose. Needs PROJECT GEOPHYSICIST exam (post hyst) exam and breast exam. (sister had breast cancer). Appt Dr. Bacon 1 month . Labs CBC, CMP, Lip ids, TSH, FT4, HgbA1C Mammo req given Drug test obtained Needs to restart Trulicity but needs pre-auth. Will await lab results first. Unsure of dose. Needs PROJECT GEOPHYSICIST exam (post hyst) exam and breast exam. (sister had breast cancer). Appt Dr. Bacon 1 month . Labs CBC, CMP, Lip ids, TSH, FT4, HgbA1C Mammo req given Drug test obtained Needs to restart Trulicity but needs pre-auth. Will await lab results first. Unsure of dose. Needs PROJECT GEOPHYSICIST exam (post hyst) exam and breast exam. (sister had breast cancer). Appt Dr. Bacon 1 month
--- OUTSIDE RECORDS SUMMARY | 2020-03-25 10:28 | XMS REPORT | CCD ---
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 Lipids, TSH, FT4, HgbA1C Mammo req given Drug test obtained Needs to restart Trul[employer] but needs pre-auth. Will await lab results first. Unsure of dose. 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 (sister had breast cancer). Appt Dr. Bacon 1 month 04/30/2017 Visit Plan: Labs CBC, CMP, Lipids, TSH, FT4, HgbA1C Mammo req given Drug test obtained Needs to restart Trul[employer] but needs pre-auth. Will await lab results first. Unsure of dose. 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 (sister had breast cancer). Appt Dr. Bacon 1 month 04/30/2017 Appointment: Sruthi Kurtz WPtel: [phone] [id number] [facility] NEW PATIENT 04/30/2017 Patient Education: Patient Medication Summary Completed 04/30/2017 Patient Education: [facility] - Saving AutoInj - 18-64 - Dynamic Portal ID Completed 04/30/2017 Patient Education: Lamontepieter/Maureenbebetouo XR - 18-64 - eCopay Completed 04/30/2017 Appointment: Julia Bacon WPtel: [phone] [id number] RESCHEDULED 04/22/2017 Instructions Comment . Labs CBC, CMP, Lip ids, TSH, FT4, HgbA1C Mammo req given Drug test obtained Needs to restart Trul[employer] but needs pre-auth. Will await lab results first. Unsure of dose. 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 (sister had breast cancer). Appt Dr. Bacon 1 month . Labs CBC, CMP, Lip ids, TSH, FT4, HgbA1C Mammo req given Drug test obtained Needs to restart Trulicity but needs pre-auth. Will await lab results first. Unsure of dose. 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 (sister had breast cancer). Appt Dr. Bacon 1 month . Labs CBC, CMP, Lip ids, TSH, FT4, HgbA1C Mammo req given Drug test obtained Needs to restart Trulicity but needs pre-auth. Will await lab results first. Unsure of dose. 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 (sister had breast cancer). Appt Dr. Bacon 1 month . Labs CBC, CMP, Lip ids, TSH, FT4, HgbA1C Mammo req given Drug test obtained Needs to restart Trul[employer] but needs pre-auth. Will await lab results first. Unsure of dose. 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 (sister had breast cancer). Appt Dr. Bacon 1 month
--- OUTSIDE RECORDS SUMMARY | 2020-03-25 10:28 | XMS REPORT | CCD ---
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 Mammo req given Drug test obtained Needs to restart Trulicity but needs pre-auth. Will await lab results first. Unsure of dose. 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 (sister had breast cancer). Appt Dr. Bacon 1 month 04/30/2017 Visit Plan: Labs CBC, CMP, Lipids, TSH, FT4, HgbA1C Mammo req given Drug test obtained Needs to restart Trulicity but needs pre-auth. Will await lab results first. Unsure of dose. 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 (sister had breast cancer). Appt Dr. Bacon 1 month 04/30/2017 Visit Plan: Labs CBC, CMP, Lipids, TSH, FT4, HgbA1C Mammo req given Drug test obtained Needs to restart Trulicity but needs pre-auth. Will await lab results first. Unsure of dose. 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 (sister had breast cancer). Appt Dr. Bacon 1 month 04/30/2017 Visit Plan: Labs CBC, CMP, Lipids, TSH, FT4, HgbA1C Mammo req given Drug test obtained Needs to restart Trulicity but needs pre-auth. Will await lab results first. Unsure of dose. 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 (sister had breast cancer). Appt Dr. Bacon 1 month 04/30/2017 Appointment: Sruthi Kurtz [facility]el[phone] [id number] [facility] 04/30/2017 Patient Education: Patient Medication Summary Completed 04/30/2017 Patient Education: [facility] - Saving AutoInj - 64 - Dynamic Portal ID Completed 04/30/2017 Patient Education: Leydi/Maura XR - - eCopay Completed 04/30/2017 Appointment: Julia Bacon WPtel: [phone] [id number] RESCHEDULED 04/22/2017 Instructions Comment . Labs CBC, CMP, Lip ids, TSH, FT4, HgbA1C Mammo req given Drug test obtained Needs to restart Trulicity but needs pre-auth. Will await lab results first. Unsure of dose. 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 (sister had breast cancer). Appt Dr. Bacon 1 month . Labs CBC, CMP, Lip ids, TSH, FT4, HgbA1C Mammo req given Drug test obtained Needs to restart Trulicity but needs pre-auth. Will await lab results first. Unsure of dose. 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 (sister had breast cancer). Appt Dr. Bacon 1 month . Labs CBC, CMP, Lip ids, TSH, FT4, HgbA1C Mammo req given Drug test obtained Needs to restart Trulicity but needs pre-auth. Will await lab results first. Unsure of dose. 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 (sister had breast cancer). Appt Dr. Bacon 1 month . Labs CBC, CMP, Lip ids, TSH, FT4, HgbA1C Mammo req given Drug test obtained Needs to restart Trulicity but needs pre-auth. Will await lab results first. Unsure of dose. 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 (sister had breast cancer). Appt Dr. Bacon 1 month
--- OUTSIDE RECORDS SUMMARY | 2020-03-25 10:29 | XMS REPORT | CCD ---
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 month 04/30/2017 [facility]: Sruthi Kurt[phone] [id number] [facility] 04/30/2017 Patient Education: Patient Medication Summary Completed 04/30/2017 Patient Education: [facility] - Saving AutoInj - 18-64 - Dynamic Portal ID Completed 04/30/2017 Patient Education: Lamontepieter/Maureenbebetouo XR - 18-64 - eCopay Completed 04/30/2017 Appointment: Julia Bacon WPtel: [phone] [id number] RESCHEDULED 04/22/2017 Instructions Comment . Labs CBC, CMP, Lip ids, TSH, FT4, HgbA1C Mammo req given Drug test obtained Needs to restart Trulicity but needs pre-auth. Will await lab results first. Unsure of dose. 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 (sister had breast cancer). Appt Dr. Bacon 1 month . Labs CBC, CMP, Lip ids, TSH, FT4, HgbA1C Mammo req given Drug test obtained Needs to restart Trulicity but needs pre-auth. Will await lab results first. Unsure of dose. 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 (sister had breast cancer). Appt Dr. Bacon 1 month . Labs CBC, CMP, Lip ids, TSH, FT4, HgbA1C Mammo req given Drug test obtained Needs to restart Trulicity but needs pre-auth. Will await lab results first. Unsure of dose. 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 (sister had breast cancer). Appt Dr. Bacon 1 month . Labs CBC, CMP, Lip ids, TSH, FT4, HgbA1C Mammo req given Drug test obtained Needs to restart Trulicity but needs pre-auth. Will await lab results first. Unsure of dose. 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 (sister had breast cancer). Appt Dr. Bacon 1 month
--- OUTSIDE RECORDS SUMMARY | 2020-03-25 10:30 | XMS REPORT | CCD ---
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 Appointment: Julia Bacon WPtel: [address] [place] [address] US FOLLOW UP 05/26/2018 Patient Education: Patient Medication Summary Completed 05/26/2018 Visit Diagnosis Plan: 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 - Saving AutoInj - 18-64 - Dynamic Portal ID Completed 01/18/2018 Appointment: Julia Bacon WPtel: [address] [place] [address] US RESCHEDULED 08/24/2017 Visit Diagnosis Plan: Other spondylosis with radiculopathy, cervical region Discussion: Proceed with MRI of cervical spine Fwup pending above results ICD-9 : 721.0 ICD-10 : M47.22 08/12/2017 Visit Diagnosis Plan: Displacement of br east prosthesis and implant, initial encounter Discussion: Proceed with MRI of breasts ICD-9 : 996.54 ICD-10 : T85.42XA 08/12/2017 Appointment: Julia Bacon WPtel: [address] [place] [address] ACUTE ILLNESS 08/12/2017 Patient Education: Patient Medication Summary Completed 08/12/2017 Patient Education: Leydi/Stephenieuo XR - -64 - eCopay Completed 08/12/2017 Patient Education: [facility] - Saving AutoInj - 18-64 - Dynamic Portal ID Completed 08/12/2017 Care Plan: MRI NECK SPINE W/O DYE LOINC : 79088-1 Pending 08/12/2017 Care Plan: MRI BOTH BREASTS Pending 08/12/2017 Appointment: Julia Bacon WPtel: [address] [place] [address] US RESCHEDULED 07/20/2017 Visit Diagnosis Plan: 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 Discussion: Just restarted trulicity Acc uchecks daily Check HbA1C in 3mos and fwup Change Triam/HCTZ to Lisinopril Hct Follow Up: 3 months ICD-9 : 250.90 ICD-10 : E11.8 05/25/2017 Appointment: Julia Bacon WPtel: [address] [place] [address] US FOLLOW UP 05/25/2017 Patient Education: Patient Medication Summary Completed 05/25/2017 Patient Education: [facility] - Saving AutoInj - Lisinopril - 18-64 - Dynamic Portal ID Completed 05/25/2017 Patient Education: Patient Medication Summary Completed 05/03/2017 Care Plan: US EXAM OF HEAD AND NECK Thyroid Ultrasound Pending 05/03/2017 Care Plan: MAMMOGRAM SCREENING LOINC : 15706-8 Pending 05/03/2017 Visit Plan: Labs CBC, CMP, Lipids, TSH, FT4, HgbA1C Mammo req given Drug test obtained Needs to restart Trulicity but needs pre-auth. Will await lab results first. Unsure of dose. Needs COOKING CHEF exam (post hyst) exam and breast exam. (sister had breast cancer). Appt Dr. Bacon 1 month 04/30/2017 Visit Plan: Labs CBC, CMP, Lipids, TSH, FT4, HgbA1C Mammo req given Drug test obtained Needs to restart Trulicity but needs pre-auth. Will await lab results first. Unsure of dose. Needs COOKING CHEF exam (post hyst) exam and breast exam. (sister had breast cancer). Appt Dr. Bacon 1 month 04/30/2017 Visit Plan: Labs CBC, CMP, Lipids, TSH, FT4, HgbA1C Mammo req given Drug test obtained Needs to restart Trulicity but needs pre-auth. Will await lab results first. Unsure of dose. Needs COOKING CHEF exam (post hyst) exam and breast exam. (sister had breast cancer). Appt Dr. Bacon 1 month 04/30/2017 Visit Plan: Labs CBC, CMP, Lipids, TSH, FT4, HgbA1C Mammo req given Drug test obtained Needs to restart Trulicity but needs pre-auth. Will await lab results first. Unsure of dose. Needs COOKING CHEF exam (post hyst) exam and breast exam. (sister had breast cancer). Appt Dr. Bacon 1 month 04/30/2017 Appointment: Sruthi Kurtz WPtel: [phone] [id number] NEW PATIENT 04/30/2017 Patient Education: Patient Medication Summary Completed 04/30/2017 Patient Education: [facility] - Saving AutoInj - 18-64 - Dynamic Portal ID Completed 04/30/2017 Patient Education: Leydi/Maura XR - 18-64 - eCopay Completed 04/30/2017 [facility]ment: [facility] [phone] [id number] RESCHEDULED 04/22/2017 Instructions Comment . Labs CBC, CMP, Lip ids, TSH, FT4, HgbA1C Mammo req given Drug test obtained Needs to restart Trulicity but needs pre-auth. Will await lab results first. Unsure of dose. Needs COOKING CHEF exam (post hyst) exam and breast exam. (sister had breast cancer). Appt Dr. Bacon 1 month . Labs CBC, CMP, Lip ids, TSH, FT4, HgbA1C Mammo req given Drug test obtained Needs to restart Trulicity but needs pre-auth. Will await lab results first. Unsure of dose. Needs COOKING CHEF exam (post hyst) exam and breast exam. (sister had breast cancer). Appt Dr. Bacon 1 month . Labs CBC, CMP, Lip ids, TSH, FT4, HgbA1C Mammo req given Drug test obtained Needs to restart Trulicity but needs pre-auth. Will await lab results first. Unsure of dose. Needs COOKING CHEF exam (post hyst) exam and breast exam. (sister had breast cancer). Appt Dr. Bacon 1 month . Labs CBC, CMP, Lip ids, TSH, FT4, HgbA1C Mammo req given Drug test obtained Needs to restart Trulicity but needs pre-auth. Will await lab results first. Unsure of dose. Needs COOKING CHEF exam (post hyst) exam and breast exam. (sister had breast cancer). Appt Dr. Bacon 1 month
--- OUTSIDE RECORDS SUMMARY | 2020-03-25 10:30 | XMS REPORT | CCD ---
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 (sister had breast cancer). Appt Dr. Bacon 1 month . Labs CBC, CMP, Lip ids, TSH, FT4, HgbA1C Mammo req given Drug test obtained Needs to restart Trulicity but needs pre-auth. Will await lab results first. Unsure of dose. 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 (sister had breast cancer). Appt Dr. Bacon 1 month . Labs CBC, CMP, Lip ids, TSH, FT4, HgbA1C Mammo req given Drug test obtained Needs to restart Trulicity but needs pre-auth. Will await lab results first. Unsure of dose. 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 (sister had breast cancer). Appt Dr. Bacon 1 month
--- OUTSIDE RECORDS SUMMARY | 2020-03-25 10:30 | XMS REPORT | Continuity of Care Document ---
Author Organization Unknown Address Unknown Phone Unavailable Allergies Active Description Code Type Severity Reaction Onset Reported/Identified Relationship to Patient Clinical Status Yes No Known Drug Allergies [id number] Drug Allergy Unknown N/A 03/19/2020 Medications There is no data. Problems Date Dx Coded Attending Type Code Diagnosis Diagnosed By 05/26/2017 GABRIELE NUNESP Ot Z12.31 ENCNTR SCREEN MAMMOGRAM FOR MALIGNANT NE 06/02/2017 KIKONDER DO, KENIA S Ot E04.2 NONTOXIC MULTINODULAR GOITER 06/02/2017 GABRIELE NUNES Ot Z12.31 ENCNTR SCREEN MAMMOGRAM FOR MALIGNANT NE 06/09/2017 GABRIELE NUNES Ot Z12.31 ENCNTR SCREEN MAMMOGRAM FOR MALIGNANT NE 06/09/2017 IKKONDER DO, KENIA S Ot E04.2 NONTOXIC MULTINODULAR GOITER 12/07/2019 W E11.9 Type 2 diabetes mellitus without complications Orender, Kenia S. 12/07/2019 W K21.9 Esop hageal reflux Orender, Kenia S. 12/07/2019 W R10.13 Epi gastric pain Orender, Kenia S. 12/07/2019 W E11.9 Type 2 diabetes mellitus without complications Orender, Kenia S. 12/07/2019 W K21.9 Esop hageal reflux Orender, Kenia S. 12/07/2019 W R10.13 Epi gastric pain Orender, Kenia S. 12/07/2019 W E11.9 Type 2 diabetes mellitus without complications Orender, Kenia S. 12/07/2019 W K21.9 Esop hageal reflux Orender, Kenia S. 12/07/2019 W R10.13 Epi gastric pain Orender, Kenia S. 02/21/2020 W K59.00 Con stipation Shanelle Olguin 02/21/2020 W K59.00 Con stipation Regis, Shanelle 02/21/2020 W K59.00 Con stipation Regis, Shanelle 02/22/2020 REGISSHANELLE SMITH WREATH INSPECTOR Ot K59.00 CONSTIPATION, UNSPECIFIED 03/13/2020 REGISSHANELLE SMITH WREATH INSPECTOR Ot K59.00 CONSTIPATION, UNSPECIFIED Procedures There is no data. Results Test Result Range Coronavirus SARS-CoV-2 SO 2018 - 0 08:40 Coronavirus Ab [Units/volume] in Serum Negative Negative Capillary blood glucose measurement by g lucometer (mass/volume) - 03/25/20 09:41 Capillary blood glucose measurement by glucometer (mas s/volume) 106 mg/dL 70-110 Encounters ACCT No. Visit Date/Time Discharge Status Pt. Type Provider Facility Loc./Unit Complaint 03/201807/12/2019 09:15:40 07/12/2019 23:59: 59 CLS Outpatient [id number] 03/23/2017 11:32:26 03/23/2017 23:59:5 9 CLS Outpatient [id number] 03/20/2020 08:37:00 020 15:29:00 DIS Outpatient HAYDEN MACK DO Via [facility] PREOP GASTRITIS, CHANGE IN LAVELLE WEL HABITS [id number] 02/21/2020 13:41:00 020 23:59:59 CLS Outpatient SHANELLE OLGUIN WREATH INSPECTOR Via [facility] RAD CONSTIPATION [id number] 05/25/2017 13:25:00 017 23:59:59 CLS Outpatient GABRIELE NUNES Via [facility] RAD HEALTH MAINT [id number] 05/25/2017 13:19:00 017 23:59:59 CLS Outpatient KENIA RODRÍGUEZ DO [facility] RAD THYROID NODULE; HEALTH MAINT [id number] 03/25/2020 10:20:00 P EN Preadmit HAYDEN MACK DO [facility] ENDO GASTRITIS,CHANGE IN BOWEL BORREGO BITS.
[2020-03-25 10:50] VITALS: BP 119/77
[2020-03-25 11:10] VITALS: BP 119/77
--- NOTE | 2020-03-25 14:20 | Anesthesia-General Post-Op ---
MAC Patient Condition Mental Status/LOC: Same as Preop Cardiovascular: Satisfactory Nausea/Vomiting: Absent Respiratory: Satisfactory Pain: Controlled Complications: Absent Post Op Complications Complications None Follow Up Care/Instructions Patient Instructions None needed. Anesthesiology Discharge Order Discharge Order Patient was seen this morning after the procedure and she was doing well, no complaints, stable vital signs, no apparent adverse anesthesia problems. HENRI RAND DO Mar 25, 2020 14:20
--- NOTE | 2020-03-26 04:24 | OPERATIVE REPORT ---
DATE OF SERVICE: 03/25/2020 PREOPERATIVE DIAGNOSES: Dysphagia, gastritis and change in bowel habits. POSTOPERATIVE DIAGNOSES: Gastritis, hiatal hernia, some mild esophagitis as well as a poor prep and questionable polyps. PROCEDURE: 1. EGD with biopsy. 2. Colonoscopy. SURGEON: Blayne Adler DO GENERAL TELLER: None. ANESTHESIA: IV sedation by the anesthesiologist. SPECIMEN: Biopsy of the antrum, biopsy of stomach, biopsy of GE junction. BLOOD LOSS: Scant. FLUIDS: Per anesthesia. POSTOPERATIVE CONDITION: Stable. INDICATION FOR PROCEDURE: The patient is a 49-year-old female who has been having some dysphagia and gastritis and she noted a change in her bowel habits and needed a workup. FINDINGS: The patient had some gastritis, hiatal hernia and noted to also have possible esophagitis. Unfortunately, her colon was not clean. There was a poor prep I thought I saw a polyp, but could not clear the stool out of the way, so she will need a repeat colonoscopy. PROCEDURE NOTE: After informed consent was obtained, the patient was brought to the endoscopy suite, placed in bed in left lateral decubitus position. She was administered IV sedation by the anesthesiologist who then monitored her vitals the entire time, heart rate, blood pressure and pulse ox and we started with the EGD, placed the scope down the mouth through the esophagus and into the stomach, noted some gastritis as well and then went through the duodenum. Duodenum looked fine. Pulled back, did a biopsy of the antrum. Retroflexed the scope, saw hiatal hernia and then did a biopsy of the body of stomach, then pulled the scope into the GE junction, did a biopsy here, pushed the scope back into the stomach, suctioned all the air out and then pulled the scope up the esophagus and out the mouth. Switched camera, switched gloves, went down below, started the colonoscopy. Unfortunately, it was immediately upon entering, noted a lot of retained thick fecal material, it was mostly liquid, but covered all the haines and was cloudy and the scope pushed past some of this, but as I continued up the descending colon and passed the splenic flexure into the transverse colon, there was still a large amount and it felt like it was getting more fecal material, so at this time elected to just stop the scope, pulled back, insufflating to look circumferentially at the haines looking at the transverse colon, splenic flexure, descending colon and sigmoid colon and rectum, thought I may have seen some colon polyps, but I could not clear the fecal material and so at this point, I removed the scope and the patient was recovered in endoscopy suite. We will have to repeat the scope; may be able to try to do this tomorrow, keep her on clear liquids and have her do a couple of bottles of mag citrate. She otherwise tolerated the procedure well. Job ID: [id number] DocumentID: [id number] Dictated Date: 03/25/2020 20:38:33 Lap Machine Tender Date: 03/26/2020 04:22:59 Dictated By: DO HENRY FLORIAN
== END 2020-03-25 11:10 | disposition home or self-care (01) ==
LOC: ENDO 09:09
PROVIDERS: ATTEND Surgery
DX: K63.5 Polyp of colon (principal); K29.70 Gastritis, unspecified, without bleeding; K21.0 Gastro-esophageal reflux disease with esophagitis; K44.9 Diaphragmatic hernia without obstruction or gangrene; F41.9 Anxiety disorder, unspecified; E11.9 Type 2 diabetes mellitus without complications; Z79.899 Other long term (current) drug therapy; Z79.84 Long term (current) use of oral hypoglycemic drugs; Z90.710 Acquired absence of both cervix and uterus; Z80.3 Family history of malignant neoplasm of breast; Z82.61 Family history of arthritis; Z82.49 Family history of ischemic heart disease and other diseases of the circulatory system
CPT/HCPCS: 82962

== ENCOUNTER 2020-03-26 11:02 | Day surgery (SDC) | payer BC ==
[~2020-03-26] VITALS: Ht 162.4 cm; Wt 75.0 kg
[2020-03-26] MEDS ORDERED: LACTATED RINGERS 1,000 ML IV ONE ×2 (11:04→12:54)
[2020-03-26 11:29] VITALS: BP 130/73
--- NOTE | 2020-03-26 11:59 | Progress Note-Pre Operative ---
Pre-Operative Progress Note H&P Reviewed The H&P was reviewed, patient examined and no changes noted. Time Seen by Provider: 11:56 Date H&P Reviewed: Mar 26, 2020 Time H&P Reviewed: 11:56 Pre-Operative Diagnosis: Poor prep HAYDEN MACK DO Mar 26, 2020 11:58
[2020-03-26 12:08] VITALS: BP 92/54
[2020-03-26] MEDS ORDERED: MIDAZOLAM 2 MG/2 ML (VERSED) VIAL ONE (12:08)
[2020-03-26] MEDS ORDERED: proPOfol 200 MG/20 ML (DIPRIVAN) VIAL IV ONE ×2 (12:08→12:50)
--- OUTSIDE RECORDS SUMMARY | 2020-03-26 12:36 | XMS REPORT | Continuity of Care Document ---
Author Organization Unknown Address Unknown Phone Unavailable Allergies Active Description Code Type Severity Reaction Onset Reported/Identified Relationship to Patient Clinical Status Yes No Known Drug Allergies [id number] Drug Allergy Unknown N/A 03/19/2020 Medications There is no data. Problems Date Dx Coded Attending Type Code Diagnosis Diagnosed By 08/05/1528 HAYDEN MACK DO Ot K45.8 OTH ABDOMINAL HERNIA WITHOUT OBSTRUCTION 08/05/1528 HAYDEN MACK DO Ot Z01.8 12 ENCOUNTER FOR PREPROCEDURAL LABORATORY E 08/05/1528 HAYDEN MACK DO Ot Z20.8 28 CONTACT W AND EXPOSURE TO OTH VIRAL COMM 05/26/2017 GABRIELE NUNES Ot Z12.31 ENCNTR SCREEN MAMMOGRAM FOR MALIGNANT NE 06/02/2017 KENIA BACON DO S Ot E04.2 NONTOXIC MULTINODULAR GOITER 06/02/2017 GABRIELE NUNES Ot Z12.31 ENCNTR SCREEN MAMMOGRAM FOR MALIGNANT NE 06/09/2017 GABRIELE NUNES Ot Z12.31 ENCNTR SCREEN MAMMOGRAM FOR MALIGNANT NE 06/09/2017 MOISESNDLONA ELIZABETH BISWASLINE S Ot E04.2 NONTOXIC MULTINODULAR GOITER 12/07/2019 W E11.9 Type 2 diabetes mellitus without complications MoisesndElizabeth alcalaline S. 12/07/2019 W K21.9 Esop hageal reflux Moisesnder, Kenia S. 12/07/2019 W R10.13 Epi gastric pain MoisesndElia alcalaKenia S. 12/07/2019 W E11.9 Type 2 diabetes mellitus without complications MoisesnderElizabethKenia S. 12/07/2019 W K21.9 Esop hageal reflux Orendlona, Kenia S. 12/07/2019 W R10.13 Epi gastric pain MoisesndElizabeth alcalaline S. 12/07/2019 W E11.9 Type 2 diabetes mellitus without complications Orender, Kenia S. 12/07/2019 W K21.9 Esop hageal reflux Kenia Bacon S. 12/07/2019 W R10.13 Epi gastric pain Kenia Bacon S. 02/21/2020 W K59.00 Con stipation Regis, Shanelle 02/21/2020 W K59.00 Con stipation Regis, Shanelle 02/21/2020 W K59.00 Con stipation Regis, Shanelle 02/22/2020 REGIS, SHANELLE R PSYCHOLOGIST ENGINEERING Ot K59.00 CONSTIPATION, UNSPECIFIED 03/13/2020 REGIS, SHANELLE R PSYCHOLOGIST ENGINEERING Ot K59.00 CONSTIPATION, UNSPECIFIED 03/20/2020 HAYDEN MACK DO Ot K45.8 OTH ABDOMINAL HERNIA WITHOUT OBSTRUCTION 03/20/2020 HAYDEN MACK DO Ot Z01.8 12 ENCOUNTER FOR PREPROCEDURAL LABORATORY E 03/20/2020 HAYDEN MACK DO Ot Z20.8 28 CONTACT W AND EXPOSURE TO OTH VIRAL COMM 03/25/2020 REGIS, SHANELLE R PSYCHOLOGIST ENGINEERING Ot K59.00 CONSTIPATION, UNSPECIFIED Procedures There is [...] 03/23/2017 11:32:26 03/23/2017 23:59:5 9 CLS Outpatient [id number] 03/25/2020 09:09:00 020 11:10:00 DIS Outpatient HAYDEN MACK DO Via [facility] ENDO GASTRITIS,CHANGE IN BOW EL HABITS. [id number] 03/20/2020 08:37:00 020 15:29:00 DIS Outpatient HAYDEN MACK DO [facility] PREOP GASTRITIS, CHANGE IN LAVELLE WEL HABITS [id number] 02/21/2020 13:41:00 020 23:59:59 CLS Outpatient SHANELLE OLGUIN APRN [facility] RAD CONSTIPATION [id number] 05/25/2017 13:25:00 017 23:59:59 CLS Outpatient GABRIELE NUNES [facility] HEALTH MAINT [id number] 05/25/2017 13:19:00 017 23:59:59 CLS Outpatient KENIA BACON DO Via [facility] RAD THYROID NODULE; HEALTH MAINT [id number] 03/26/2020 12:00:00 P EN Preadmit HAYDEN MACK DO [facility] ENDO CHANGE IN BOWEL HABITS
[2020-03-26 13:08] VITALS: BP 92/54
--- NOTE | 2020-03-26 13:09 | Progress Note-Post Operative ---
Post-Operative Progess Note Surgeon (s)/Elevator Operator (s) Surgeon HAYDEN MACK DO Elevator Operator: none Pre-Operative Diagnosis Poor prep, Change in bowel habits Post-Operative Diagnosis Polyps diverticula int hemorrhoids AVM Procedure & Operative Findings Date of Procedure 03/26/20 Procedure Performed/Findings Colon with hot bx Anesthesia Type IV sedation by SECURITY TECH Estimated Blood Loss Estimated blood loss (mL): scant Specimens/Packing Specimens Removed Sigmoid polyp Rectal polyp HAYDEN MACK DO Mar 26, 2020 13:09
--- NOTE | 2020-03-26 13:10 | Endoscopy Discharge Instruct ---
Endo Procedure/Findings Findings 1.: Polyp 2.: Diverticulosis (very early) 3.: Internal Hemorrhoids 4.: Vascular Ectasias Discharge Instructions - Activity: You might feel a little sleepy until tomorrow. This is due to the medicine you received to relax you. Until tomorrow, you should: NOT drive a car, operate machinery or power tools. NOT drink any alcoholic beverages. NOT make any important decisions or sign importortant papers. Do not return to work until tomorrow, unless otherwise instructed. Resume previous activities tomorrow. Diet: Start by taking liquids. If you tolerate liquids, advance to solid food. make an appointment for one week 1.: Colonscopy in 5 years Notify Physician - If you experience excessive bleeding, unusual abdominal pain, fever, or chest pain, contact your doctor immediately. HAYDEN MACK DO Mar 26, 2020 13:10
[2020-03-26 13:12] VITALS: BP 92/56
[2020-03-26 13:35] VITALS: BP 112/73
--- NOTE | 2020-03-26 13:36 | Anesthesia-General Post-Op ---
MAC Patient Condition Mental Status/LOC: Same as Preop Cardiovascular: Satisfactory Nausea/Vomiting: Absent Respiratory: Satisfactory Pain: Controlled Complications: Absent Post Op Complications Complications None Follow Up Care/Instructions Patient Instructions None needed. Anesthesiology Discharge Order Discharge Order Patient is doing well, no complaints, stable vital signs, no apparent adverse anesthesia problems. No complications reported per nursing. MARIEL WILBURN CRNA Mar 26, 2020 13:36
[2020-03-26 14:00] VITALS: BP 112/73
--- NOTE | 2020-03-26 17:59 | OPERATIVE REPORT ---
DATE OF SERVICE: 03/26/2020 PREOPERATIVE DIAGNOSES: Change in bowel habits, poor prep. POSTOPERATIVE DIAGNOSES: Colon polyps, diverticula, internal hemorrhoids and AVM. PROCEDURE: Colonoscopy with hot biopsy. SURGEON: Blayne Adler DO PITTING MACHINE OPERATOR: None. ANESTHESIA: IV sedation by the PATIENT ACCESS ASSOCIATE. SPECIMEN: One sigmoid polyp and one rectal polyp. BLOOD LOSS: Scant. FLUIDS: Per anesthesia. POSTOPERATIVE CONDITION: Stable. INDICATION FOR PROCEDURE: The patient is a 49-year-old female who has been having some change in bowel habits. We attempted colonoscopy yesterday, but unfortunately she had a poor prep and could not finish today. She was slightly better, still took about 40 minutes longer than normal because of trying to flush it out and during that procedure noted to be early beginnings of diverticula. She has had one AVM, two polyps and some very minimal internal hemorrhoids. PROCEDURE NOTE: After informed consent was obtained, the patient was brought to the endoscopy suite, placed in bed in left lateral decubitus position. She was administered IV sedation by the PATIENT ACCESS ASSOCIATE who then monitored her vitals the entire time, heart rate, blood pressure and pulse ox and the scope was inserted, pushed in to about 150 cm, able to get all the way to the cecum, took a picture of appendiceal orifice, noted the ileocecal valve, on the way to take a picture of a small AVM and then once in the cecum, slowly withdrew the scope insufflating the circumferential haines looking the cecum, up the ascending colon to the hepatic flexure, then down the transverse colon, the splenic flexure into the descending colon and down into the sigmoid colon. In the sigmoid colon, saw small flat polyp, I elected to do a hot biopsy of this and continued down and in the rectum, saw another small flat polyp, did another hot biopsy of this and then retroflexed in the rectal vault, saw some minimal internal hemorrhoids, took a picture and then removed the scope. There is still a lot of retained liquid fecal material. This case took a little bit longer because of that, but otherwise the patient tolerated the procedure. She recovered in endoscopy suite. Job ID: [id number] DocumentID: [id number] Dictated Date: 03/26/2020 13:46:24 Software Systems Engineer Date: 03/26/2020 17:58:50 Dictated By: BLAYNE ADLER DO
== END 2020-03-26 14:00 | disposition home or self-care (01) ==
LOC: ENDO 11:02
PROVIDERS: ATTEND Surgery
DX: K63.5 Polyp of colon (principal); K62.1 Rectal polyp; K57.30 Diverticulosis of large intestine without perforation or abscess without bleeding; K64.8 Other hemorrhoids; E11.9 Type 2 diabetes mellitus without complications; K21.9 Gastro-esophageal reflux disease without esophagitis; F41.9 Anxiety disorder, unspecified; Z79.84 Long term (current) use of oral hypoglycemic drugs; Z79.899 Other long term (current) drug therapy; Z90.710 Acquired absence of both cervix and uterus; Z80.3 Family history of malignant neoplasm of breast; Z82.49 Family history of ischemic heart disease and other diseases of the circulatory system; Z82.61 Family history of arthritis
CPT/HCPCS: 82962